=== PATIENT | female | born 1955 | race Caucasian/White ===

== ENCOUNTER → 2020-07-22 | Outpatient (CLI) | payer OTHER, MEDICARE ==
[~2020-07-22] MED LIST: ASPI81TA86 PO; B COCAP4 PO; CALCTAB49 PO; CODCAP26 PO; FISH120016 PO; FURO20TA2 PO; GARL500C2 PO; MELA10CA2 PO; MULTCAP PO; PRES10CA2 PO; RA B2500 PO; SIMV10TA21 PO; [UNRECOGNIZED DRUG - CODE] PO
[2020-07-22 07:56] LABS: HEMATOCRIT 39.5 % (36.0-47.0); HEMOGLOBIN 12.8 g/dl (12.0-15.5); MEAN CORPUSCULAR HEMOGLOBIN 30.5 pg (27.0-33.0); MEAN CORPUSCULAR HGB CONC 32.4 g/dl (32.0-36.5); MEAN CORPUSCULAR VOLUME 94.3 fl (80.0-96.0); PLATELET COUNT, AUTOMATED 286 10^3/uL (150-450); RED BLOOD COUNT 4.19 10^6/uL (4.00-5.40)
[2020-07-22 08:26] LABS: ALBUMIN 3.9 GM/DL (3.2-5.2); ALT/SGPT 20 U/L (12-78); BILIRUBIN,TOTAL 0.4 MG/DL (0.2-1.0); BLOOD UREA NITROGEN 11 MG/DL (7-18); CALCIUM LEVEL 9.3 MG/DL (8.8-10.2); CARBON DIOXIDE LEVEL 30 MEQ/L (21-32); CHLORIDE LEVEL 99 MEQ/L (98-107); CREATININE FOR GFR 0.78 MG/DL (0.55-1.30); GLOMERULAR FILTRATION RATE > 60.0 (>45); GLUCOSE, FASTING 93 MG/DL (70-100); POTASSIUM SERUM 4.2 MEQ/L (3.5-5.1); SODIUM LEVEL 135 MEQ/L (136-145); TOTAL PROTEIN 7.3 GM/DL (6.4-8.2)
[2020-07-22 08:31] LABS: ERYTHROCYTE SEDIMENTATION RATE 12 mm/hr (0-30)
--- NOTE | 2020-07-26 00:03 | ECGEPIP ---
[facility] Test Date: 2020-07-22 Pat Name: PAVAN SAHU Department: Room: - Gender: Female Shop Welder: BRIAN : 1955 Requested By: Swathi Jean Order Number: [id number] Reading MD: Milton Ocasio Measurements Intervals [place] Rate: 67 P: 35 [place]: 135 QRS: 42 QRSD: 88 T: 34 QT: 379 QTc: 403 Interpretive Statements SINUS RHYTHM No prior tracing in the system Electronically Signed on 07-26-2020 0:03:19 EDT by Milton Ocasio
--- NOTE | 2020-07-30 13:39 | REP ---
CHEST X-RAY: 2-VIEWS HISTORY: Osteoarthritis. COMPARISON CHEST X-RAY: None. FINDINGS: The lungs are well-inflated and free of infiltrate. The pleural angles are sharp. Heart size is normal. Cardiothoracic ratio measures 44.8%. There are degenerative changes in the thoracic spine. Osteoarthritic changes are noted fairly prominently in the glenohumeral joints bilaterally. There is a bone island in the humeral head on the right. Acromioclavicular (AC) joint osteoarthritic changes are also noted. IMPRESSION: No active cardiopulmonary disease. Bilateral glenohumeral osteoarthritis. MTDD
== END ==
LOC: M LAB 07:24
PROVIDERS: ATTEND Orthopaedic Surgery
DX: Z01.810 Encounter for preprocedural cardiovascular examination (principal); M16.12 Unilateral primary osteoarthritis, left hip

== ENCOUNTER → 2020-07-22 | Outpatient (CLI) | payer OTHER, MEDICARE ==
[2020-07-22 08:26] LABS: ALBUMIN 3.9 GM/DL (3.2-5.2); ALT/SGPT 21 U/L (12-78); BILIRUBIN,TOTAL 0.4 MG/DL (0.2-1.0); BLOOD UREA NITROGEN 11 MG/DL (7-18); CALCIUM LEVEL 9.5 MG/DL (8.8-10.2); CARBON DIOXIDE LEVEL 30 MEQ/L (21-32); CHLORIDE LEVEL 99 MEQ/L (98-107); CREATININE FOR GFR 0.73 MG/DL (0.55-1.30); GLOMERULAR FILTRATION RATE > 60.0 (>45); GLUCOSE, FASTING 94 MG/DL (70-100); POTASSIUM SERUM 4.1 MEQ/L (3.5-5.1); SODIUM LEVEL 134 MEQ/L (136-145); TOTAL PROTEIN 7.2 GM/DL (6.4-8.2)
[2020-07-22 12:52] LABS: TOTAL 25(OH) VITAMIN D 51.4 NG/ML (30.0-100.0)
== END ==
LOC: M LAB 07:17
PROVIDERS: ATTEND Nurse Practitioner Family
DX: Z01.810 Encounter for preprocedural cardiovascular examination (principal); M16.12 Unilateral primary osteoarthritis, left hip; M19.012 Primary osteoarthritis, left shoulder; M19.011 Primary osteoarthritis, right shoulder; E78.5 Hyperlipidemia, unspecified; E55.9 Vitamin D deficiency, unspecified; R60.0 Localized edema

== ENCOUNTER → 2021-02-16 | Outpatient (CLI) | payer OTHER ==
--- NOTE | 2021-02-16 10:29 | ECGEPIP ---
[facility] Test Date: 2021-02-16 Pat Name: PAVAN SAHU Department: Room: - Gender: Female Sales Service Executive: katelyn : 1955 Requested By: Ted Hernandez Order Number: [id number] Reading MD: Cally Cooper Measurements Intervals [place] Rate: 77 P: 38 [place]: 126 QRS: 53 QRSD: 78 T: 32 QT: 358 QTc: 405 Interpretive Statements Sinus rhythm normal similar TO 07/22/20 Electronically Signed on 02-16-2021 10:29:35 EDT by Cally Cooper
[2021-02-16 11:23] LABS: HEMATOCRIT 41.8 % (36.0-47.0); HEMOGLOBIN 13.4 g/dl (12.0-15.5); MEAN CORPUSCULAR HEMOGLOBIN 30.5 pg (27.0-33.0); MEAN CORPUSCULAR HGB CONC 32.1 g/dl (32.0-36.5); MEAN CORPUSCULAR VOLUME 95.2 fl (80.0-96.0); PLATELET COUNT, AUTOMATED 327 10^3/uL (150-450); RED BLOOD COUNT 4.39 10^6/uL (4.00-5.40)
[2021-02-16 11:32] LABS: INR 0.97; PROTHROMBIN TIME 13.1 SECONDS (12.5-14.3)
--- NOTE | 2021-02-16 11:33 | REP ---
INDICATION: OSTEOARTHRITIS LEFT HIP. COMPARISON: 07/22/2020 TECHNIQUE: PA and lateral views FINDINGS: The superior mediastinal structures are midline. The cardiac silhouette is unremarkable in size, shape, and position. The diaphragmatic surfaces of the lungs are regular, and the costophrenic angles are clear. The pulmonary felder are clear. The imaged osseous structures are intact. IMPRESSION: There is no acute cardiopulmonary disease. <Electronically signed by Lonny Warren > 02/16/21 1127
[2021-02-16 12:25] LABS: ALBUMIN 4.1 GM/DL (3.2-5.2); ALT/SGPT 18 U/L (12-78); BILIRUBIN,TOTAL 0.3 MG/DL (0.2-1.0); BLOOD UREA NITROGEN 11 MG/DL (7-18); CALCIUM LEVEL 9.6 MG/DL (8.8-10.2); CARBON DIOXIDE LEVEL 31 MEQ/L (21-32); CHLORIDE LEVEL 100 MEQ/L (98-107); CREATININE FOR GFR 0.66 MG/DL (0.55-1.30); GLOMERULAR FILTRATION RATE > 60.0 (>45); GLUCOSE, FASTING 74 MG/DL (70-100); POTASSIUM SERUM 4.6 MEQ/L (3.5-5.1); SODIUM LEVEL 137 MEQ/L (136-145); TOTAL PROTEIN 7.7 GM/DL (6.4-8.2)
[2021-02-16 12:48] LABS: ERYTHROCYTE SEDIMENTATION RATE 13 mm/hr (0-30)
== END ==
LOC: M LAB 09:50
PROVIDERS: ATTEND Orthopaedic Surgery
DX: M16.12 Unilateral primary osteoarthritis, left hip (principal)